=== PATIENT | female | born 1950 | race African-American/Black ===

== ENCOUNTER → 2018-07-16 | Outpatient (CLI) | payer OTHER | LOC: CAT 10:18 | DX: R51 Headache (principal) ==

== ENCOUNTER 2019-05-04 14:23 | Emergency (ER) | payer OTHER ==
[~2019-05-04] VITALS: Ht 170.2 cm; Wt 72.6 kg
[2019-05-04] MEDS ORDERED: MOBIC7.5 MG PO (15:53)
[2019-05-04 16:15] VITALS: BP 149/80
== END 2019-05-04 17:09 | disposition home or self-care (01) ==
LOC: ER 14:23
DX: S83.8X2A Sprain of other specified parts of left knee, initial encounter (principal); F17.210 Nicotine dependence, cigarettes, uncomplicated; Z88.8 Allergy status to other drugs, medicaments and biological substances; W18.39XA Other fall on same level, initial encounter; Y92.89 Other specified places as the place of occurrence of the external cause; Y93.89 Activity, other specified; Y99.8 Other external cause status

== ENCOUNTER 2019-07-09 23:10 | Emergency (ER) | payer OTHER ==
[~2019-07-09] VITALS: Ht 170.2 cm; Wt 72.6 kg
[~2019-07-09 23:10] MED LIST: MOBIC7.5 MG PO
[2019-07-10] MEDS ORDERED: TESSALON PERLE100 MG PO (01:02)
[2019-07-10] MEDS ORDERED: PROMETH-CODEIN 65 ML PO (01:02)
[2019-07-10] MEDS ORDERED: DOXYCYCLINE 10100 MG PO (01:02)
[2019-07-10 01:12] VITALS: BP 140/87
== END 2019-07-10 01:13 | disposition home or self-care (01) ==
LOC: ER 23:10
DX: J18.9 Pneumonia, unspecified organism (principal); F17.210 Nicotine dependence, cigarettes, uncomplicated

== ENCOUNTER 2019-11-23 10:59 | Emergency (ER) | payer OTHER ==
[~2019-11-23] VITALS: Ht 167.6 cm; Wt 65.3 kg
[~2019-11-23 10:59] MED LIST changes: +DOXYCYCLINE 10100 MG PO; +PROMETH-CODEIN 65 ML PO; +TESSALON PERLE100 MG PO
[2019-11-23] MEDS ORDERED: NEURONTIN300 MG PO (13:15)
[2019-11-23] MEDS ORDERED: RAYOS5 MG PO (13:16)
[2019-11-23] MEDS ORDERED: ABILIFY 5 MG TAB5 MG PO (13:16)
[2019-11-23] MEDS ORDERED: COZAAR 25MG TAB25 M1 PO (13:16)
[2019-11-23] MEDS ORDERED: TRESIBA100 UNIT/1 INJECTION (13:18)
[2019-11-23] MEDS ORDERED: LIPITOR10 MG PO (13:18)
[2019-11-23] MEDS ORDERED: PROAIR HFA8.5 GM INH (13:18)
[2019-11-23] MEDS ORDERED: PRILOSEC OTC20 MG PO (13:19)
[2019-11-23] MEDS ORDERED: PROMETHAZINE-D473 M1 PO (13:19)
[2019-11-23 14:04] LABS: MCV 70.1 fL (80.0-100.0)
[2019-11-23 14:05] LABS: ABSOLUTE NEUTROPHILS 3.5 thou/uL (1.4-8.2); EOSINOPHILS 0.9 % (0.0-3.0); HEMATOCRIT 33.2 % (37.0-47.0); HEMOGLOBIN 10.6 gm/dL (12.0-15.0); LYMPHOCYTES 34.6 % (24.0-44.0); MCH 22.3 pg (26.0-34.0); MCHC 31.8 g/dL (28.0-37.0); MONOCYTES 8.1 % (1.0-8.0); PLATELET COUNT 283 thou/uL (150-400); POLYS 55.4 % (36.0-66.0); RBC 4.74 mil/uL (4.20-5.00); RDW 20.3 % (10.5-14.5); WBC 6.4 thou/uL (4.0-11.0)
[2019-11-23 14:20] LABS: ANION GAP 7 mmol/L (7-16); BUN 11 mg/dL (7-18); CALCIUM 9.1 mg/dL (8.5-10.1); CHLORIDE 105 mmol/L (98-107); CO2 27 mmol/L (21-32); CREATININE 1.3 mg/dL (0.6-1.0); GLUCOSE 175 mg/dL (74-106); POTASSIUM 4.6 mmol/L (3.5-5.1); SODIUM 139 mmol/L (136-145)
[2019-11-23 14:29] LABS: ALBUMIN 3.5 g/dL (3.4-5.0); DIRECT BILIRUBIN < 0.1 mg/dL (<0.1-0.2); SGOT 12 U/L (15-37); SGPT 16 U/L (30-65); TOTAL BILIRUBIN 0.2 mg/dL (0.2-1.0); TOTAL PROTEIN 6.8 g/dL (6.4-8.2)
[2019-11-23 14:48] LABS: ANISOCYTOSIS 1+; PLATELET ESTIMATE NORMAL
[2019-11-23 14:49] LABS: HYPOCHROMASIA 1+; MICROCYTES 2+
[2019-11-23] MEDS ORDERED: GUAIFEN-CODEINE10 ML PO (15:22)
[2019-11-23] MEDS ORDERED: PREDNISONE 20 M20 M1 PO (15:22)
[2019-11-23 15:42] VITALS: BP 139/80
--- NOTE | 2019-11-25 08:51 | EKG ---
[facility] [place] [address] ELECTROCARDIOGRAM REPORT Name: SUSY SANTANA Room #: [facility] [place]#: [id number] Admission: 11/23/19 Attend Phys: Discharge: 11/23/19 Date of : 50 Report #: [id number] THIS REPORT FOR: cc: Arley Boggs James A. DO Lundgren, Craig H. MD [facility] THIS REPORT FOR: //name// [facility] ED Test Date: 2019-11-23 Test Time: 14:52:46 Pat Name: SUSY SANTANA Department: Room: Gender: F Document Analyst: [facility] : 1950 Requested By: Vale Matthews Order Number: [id number] MD: Luc Eaton Measurements Intervals [place] Rate: 87 P: 65 MO: 216 QRS: 52 QRSD: 74 T: 73 QT: 379 QTc: 456 Interpretive Statements Sinus rhythm Borderline prolonged MO interval Anterior infarct, old No previous ECG available for comparison Electronically Signed On 11-25-2019 8:50:56 CDT by Luc Eaton [email or web address] <ELECTRONICALLY SIGNED> By: Luc Eaton MD, [facility] 11/25/19 0850 1452 1452 Luc Eaton MD, [facility] /EPI
== END 2019-11-23 15:44 | disposition home or self-care (01) ==
LOC: ER 10:59
PROVIDERS: Emergency Medicine
DX: J44.1 Chronic obstructive pulmonary disease with (acute) exacerbation (principal); I10 Essential (primary) hypertension; E11.9 Type 2 diabetes mellitus without complications; E78.5 Hyperlipidemia, unspecified; K21.9 Gastro-esophageal reflux disease without esophagitis; F17.210 Nicotine dependence, cigarettes, uncomplicated; Z79.899 Other long term (current) drug therapy; Z88.8 Allergy status to other drugs, medicaments and biological substances

== ENCOUNTER 2020-01-31 12:53 | Emergency (ER) | payer OTHER ==
[~2020-01-31] VITALS: Ht 167.6 cm; Wt 65.8 kg
[~2020-01-31 12:53] MED LIST changes: +ABILIFY 5 MG TAB5 MG PO; +COZAAR 25MG TAB25 M1 PO; +GUAIFEN-CODEINE10 ML PO; +LIPITOR10 MG PO; +NEURONTIN300 MG PO; +PREDNISONE 20 M20 M1 PO; +PRILOSEC OTC20 MG PO; +PROAIR HFA8.5 GM INH; +PROMETHAZINE-D473 M1 PO; +RAYOS5 MG PO; +TRESIBA100 UNIT/1 INJECTION
[2020-01-31] MEDS ORDERED: PREDNISONE 20 M20 MG PO (14:28)
[2020-01-31] MEDS ORDERED: ROBITUSSIN COU237 M2 PO (14:28)
[2020-01-31] MEDS ORDERED: DOXYCYCLINE 10100 MG PO (14:29)
[2020-01-31 15:46] VITALS: BP 143/54
== END 2020-01-31 15:48 | disposition home or self-care (01) ==
LOC: ER 12:53
DX: R05 Cough (principal); I10 Essential (primary) hypertension; E11.9 Type 2 diabetes mellitus without complications; E78.5 Hyperlipidemia, unspecified; K21.9 Gastro-esophageal reflux disease without esophagitis; F17.210 Nicotine dependence, cigarettes, uncomplicated; Z79.899 Other long term (current) drug therapy; Z88.8 Allergy status to other drugs, medicaments and biological substances

== ENCOUNTER → 2020-08-10 | Outpatient (CLI) | payer OTHER ==
[~2020-08-10] MED LIST changes: +PREDNISONE 20 M20 MG PO; +ROBITUSSIN COU237 M2 PO
== END ==
LOC: SJCVCIMAG 09:48
PROVIDERS: ATTEND Family Medicine
DX: I73.9 Peripheral vascular disease, unspecified (principal); M79.606 Pain in leg, unspecified